=== PATIENT | male | born 1965 | race Caucasian/White ===

== ENCOUNTER 2020-03-04 10:27 | Outpatient (REF) | payer OTHER, SELFPAY ==
--- NOTE | 2020-03-04 10:29 | MR_ITS ---
EXAMINATION: MR LUMBAR SPINE WITHOUT CONTRAST CLINICAL INFORMATION: Low back pain with radiation down right leg. Right extremity weakness. COMPARISON: None TECHNIQUE: MRI of the lumbar spine was obtained using routine sequences without contrast. FINDINGS: The lumbar vertebral bodies maintain normal heights and alignment. There is mild desiccation at L4-L5 and L5-S1 without significant height loss. No bone marrow edema is seen. The distal spinal cord appears normal. The conus medullaris terminates normally at the T12 level. The visualized paraspinal muscles and intra-abdominal and pelvic contents are within normal limits. SPINAL LEVELS: L1-L2: No posterior disc abnormality. No spinal canal or neural foraminal stenosis. L2-L3: No posterior disc abnormality. No spinal canal or neural foraminal stenosis. L3-L4: Mild disc bulging with mild encroachment on the bilateral neural foramina. No spinal canal stenosis. L4-L5: Diffuse disc bulging with mild facet arthropathy. Bilateral foraminal protrusions are seen slightly greater on the right causing mass effect on the exiting right more than left L4 nerve roots. L5-S1: Disc bulging with central protrusion causing narrowing of the subarticular zones. Mild to moderate facet arthropathy. Minimal narrowing of the right neural foramen without foraminal nerve root compression. MR/MR lumbar spine wo con IMPRESSION: At L3-L4 there is mild encroachment on the bilateral neural foramina. At L4-L5 there are bilateral foraminal protrusions slightly greater on the right with mass effect on the exiting right more than left L4 nerve roots. At L5-S1 there is central protrusion with narrowing of the subarticular zones but without definite traversing nerve root compression. Minimal narrowing of the right neural foramen.
== END 2020-03-04 10:28 | disposition home or self-care (01) ==
LOC: HO.MRI 10:27
PROVIDERS: PCP Internal Medicine; Visit Provider Internal Medicine
DX: M54.41 Lumbago with sciatica, right side (principal)
CPT/HCPCS: 72148

== ENCOUNTER 2020-03-20 15:25 | Outpatient (REF) | payer OTHER, SELFPAY | END 2020-03-20 15:26 | disposition home or self-care (01) | LOC: HO.LAB 15:25 | PROVIDERS: PCP Family Medicine; Visit Provider Internal Medicine | DX: Z20.828 Contact with and (suspected) exposure to other viral communicable diseases (principal) | CPT/HCPCS: C9803; U0003 ==

== ENCOUNTER → 2020-12-24 09:55 | Outpatient (BNVA) | payer OTHER, SELFPAY | PROVIDERS: PCP Family Medicine; Referring Provider Family Medicine; Visit Provider Surgery | DX: Z86.010 Personal history of colon polyps (principal) | CPT/HCPCS: Q3014 ==

== ENCOUNTER 2021-01-15 08:09 | Day surgery (SDC) | payer OTHER, SELFPAY ==
[2021-01-08 12:41] VITALS: BMI 27.1
[2021-01-15 08:27] VITALS: BP 137/84; PULSE 90; RESP 18; TEMP 36.6; O2SAT 96
[2021-01-15 08:36] LABS: Glucose, Whole Blood 149 mg/dL (60-115)
--- NOTE | 2021-01-15 09:02 | P.CONAN_ITS ---
[facility] Active Problems Active Problems: All Active Problems (Updated 01/08/21 @ 12:40 by Ladan banerjee RN) History of adenomatous polyp of colon (Acute) Past Medical History Medical History BPH (benign prostatic hyperplasia) Depression Diabetes Elevated cholesterol History of adenomatous polyp of colon Vertigo Family History Family history of problems with anesthesia: No Surgical History Surgical History H/O colonoscopy Hx of hemorrhoidectomy History of Problems with Anesthesia: No Social History Social History Patient Tobacco Use Status: Current everyday Tobacco user Tobacco use type: Cigarette Cigarette Packs Per Day: 0.5 Cigarettes Per Day: 10.0 Advance Directives Information Provided: No Meds Allergies Allergy/AdvReac Type Severity Reaction Status Date / Time ibuprofen Allergy Intermediate large Verified 01/15/21 08:19 doses affect renal function Home Medications Medication Instructions Recorded Confirmed Last Taken Type atorvastatin 10 mg tablet 10 mg PO DAILY 12/24/20 01/08/21 Unknown History metformin 500 mg tablet 500 mg PO BID 12/24/20 01/08/21 Unknown History tamsulosin 0.4 mg capsule 0.4 mg PO DAILY 12/24/20 01/08/21 Unknown History trazodone 150 mg tablet 150 mg PO BEDTIME PRN 12/24/20 01/08/21 Unknown History albuterol sulfate 90 mcg/actuation 2 puff INHALATION Q4-6H PRN 01/08/21 01/08/21 Unknown History aerosol inhaler (ProAir HFA) aspirin 81 mg tablet,delayed 81 mg PO DAILY 01/08/21 01/08/21 Unknown History release buspirone 10 mg tablet 1 tab PO BID 01/08/21 01/08/21 Unknown History cyclobenzaprine 5 mg tablet 1 tab PO TID 01/08/21 01/08/21 Unknown History meclizine 25 mg tablet 1 tab PO TID PRN 01/08/21 01/08/21 Unknown History omeprazole 20 mg capsule,delayed 20 mg PO DAILY 01/08/21 01/08/21 Unknown History release Exam Exam Date and Time: January 15, [id number] Height,Weight and Vital Signs: Height 5 ft 6 in Weight 76.204 kg Last Vital Signs Temp 97.8 F 01/15/21 08:27 Pulse 90 01/15/21 08:27 Resp 18 01/15/21 08:27 BP 137/84 01/15/21 08:27 Pulse Ox 96 01/15/21 08:27 Pertinent Lab Results Pertinent Lab Results: Laboratory Tests 01/15/21 08:32 POC Glucose 149 H Airway Mallampati Class: II TM Dist: >3cm Neck ROM: Full Assessment and Plan Assessment Anesthesia Assessment: Anesthesia Plan Discussed and Chart Reviewed Final Anesthetic Review Family History of Problems with Anesthesia: No History of Problems with Anesthesia: No NPO: Yes ASA Class: II Final Preanesthetic Review: No Changes in Pt Med Stat, Meds/Allgs Chart Reviewed, Consent Obtained/Reviewed and Anes Risks/Benef Reviewed Patient Risk: Low Procedure Risk: Low Assessment/Block/Sedation in SS: Assess/Block/Sedation-SS Anesthetic Plan Anesthetic Plan: MAC: Disposition: Standard PACU
--- NOTE | 2021-01-15 09:22 | MHC.SHP ---
Pre-Procedural Eval Section A Date of Service: 01/15/21 Section B Chief Complaint: History of adenomatous polyp of colon Allergies: Allergies Allergy/AdvReac Type Severity Reaction Status Date / Time ibuprofen Allergy Intermediate large Verified 01/15/21 08:19 doses affect renal function Plan I have reviewed the history and physical and performed a pertinent physical examination on my patient. No changes have occurred unless specified.
--- NOTE | 2021-01-15 09:53 | W.PM.OPN ---
Operative Note Operative Note Date of Service: 01/15/21 Narrative: Preop diagnosis: History of adenomatous polyp of the colon Postop diagnosis: Flat polyp, near the hepatic flexure, about 2.5 cm Large hemorrhoids Procedure: Colonoscopy with polypectomy of a flat polyp using cold snare; tattooing of the area of the polyp with Corinne ink Surgeon: Ralf Hoskins MD The patient is a 55 year male would a flat polyp removed last year external to be a tubular adenoma. In view of this, I had instructed him to have another follow-up within 1-2 years. He understood the technique of colonoscopy. He was aware of the risks, benefits, and alternatives. He was brought to the operating room placed in left lateral decubitus position under monitored anesthesia care. A full digital rectal exam was done. He did have internal and external hemorrhoids which seemed to be prominent. I inserted the Olympus colonoscope was gently through the inner orifice and advanced with insufflation all the cecum. The cecum was intubated. The cecum was identified by visualization of the ileocecal valve as well as the appendiceal orifice. The cecal mucosa was unremarkable. The scope was gradually withdrawn with careful examination of the entire colonic mucosa being done with scope withdrawal. The patient did have some segments of the colon with residual stools so we had to irrigate this not irrigant fluid. At the area of the hepatic flexure was note of a small, flat polyp, about 2-2.5 cm in size. I removed this in piecemeal fashion using cold forceps. I tattooed the area of the polyp for marking as the polyp was flat so was difficult to tell whether I was able to remove all polyp tissue. I then proceeded to gradually withdrawing the scope with careful examination of the entire colonic mucosa being done with scope withdrawal. There were no other lesions seen. I could see the area that was previously tattooed which seemed to be in the transverse colon distal to the hepatic flexure. There were no lesions seen on this area despite multiple passes. The last of the distal colon and the rectum were unremarkable. There were no lesions in the anal canal except for internal and external hemorrhoidal columns that seemed to bleed easily. The scope was then withdrawn completely with desufflation The patient tolerated procedure well. The complications noted. In view of the flat nature of the polyp, I would recommend repeating the colonoscopy within 6 months and this will depend as well on the path report.
[2021-01-15 09:57] VITALS: BP 100/70; PULSE 81; RESP 16; TEMP 36.4; O2SAT 95
--- NOTE | 2021-01-15 09:59 | PM.OP ---
Brief Operative Note Date of Service: 01/15/21 Pre-op diagnosis: History of adenomatous polyp Post-op diagnosis: other (Flat polyp near the hepatic flexure, hemorrhoids) Procedure: Colonoscopy and polypectomy cold forceps with tattoo marking Surgeon: Ralf Hoskins MD Anesthesia: MAC Was an Machine Design Checker used for this Procedure?: No Estimated blood loss (mL): 2 Pathology: other (Flat polyp near the hepatic flexure) Condition: stable Disposition: PACU
[2021-01-15 10:12] VITALS: BP 107/74; PULSE 80; RESP 16; O2SAT 97
[2021-01-15 10:27] VITALS: BP 113/79; PULSE 74; RESP 16; O2SAT 98
== END 2021-01-15 11:21 | disposition home or self-care (01) ==
PROVIDERS: PCP Internal Medicine; Visit Provider Surgery
PROC: 0DJD8ZZ Inspection of Lower Intestinal Tract, Via Natural or Artificial Opening Endoscopic (ICD-10-PCS; CPT 45378; principal; 2021-01-15 09:20)
DX: Z12.11 Encounter for screening for malignant neoplasm of colon (principal); D12.3 Benign neoplasm of transverse colon; K57.30 Diverticulosis of large intestine without perforation or abscess without bleeding; K64.8 Other hemorrhoids; K64.4 Residual hemorrhoidal skin tags; Z86.010 Personal history of colon polyps; E11.9 Type 2 diabetes mellitus without complications; Z79.84 Long term (current) use of oral hypoglycemic drugs
CPT/HCPCS: 45380; 45381; 82947; 88305; J3010

== ENCOUNTER → 2021-01-18 12:55 | Outpatient (BNVA) | payer OTHER, SELFPAY | PROVIDERS: PCP Internal Medicine; Referring Provider Internal Medicine; Visit Provider Internal Medicine Gastroenterology | DX: R10.13 Epigastric pain (principal) | CPT/HCPCS: 99202 ==

== ENCOUNTER → 2021-01-27 11:29 | Outpatient (BNVA) | payer OTHER, SELFPAY | PROVIDERS: PCP Internal Medicine; Referring Provider Internal Medicine; Visit Provider Surgery | DX: D12.6 Benign neoplasm of colon, unspecified (principal) | CPT/HCPCS: 99212 ==

== ENCOUNTER 2021-02-18 07:59 | Outpatient (REF) | payer OTHER, SELFPAY ==
--- NOTE | ~2021-02-18 | US_ITS ---
EXAMINATION: US ABDOMEN LIMITED WITH LIVER ELASTOGRAPHY CLINICAL INFORMATION: Epigastric pain COMPARISON: 04/30/2019 TECHNIQUE: Real-time imaging of the right upper quadrant abdominal viscera. Noninvasive ultrasound liver fibrosis assessment is performed using Maximo ElastPQ point quantification shear wave elastography (pSWE) with a C5-2 MHz transducer. Multiple elastography samples are obtained. FINDINGS: PANCREAS: The visualized pancreatic head and neck are normal in appearance. The remainder of the pancreas is obscured from visualization by the overlying bowel gas. LIVER: The liver demonstrates normal size and contour with increased echogenicity. No focal lesion or intrahepatic biliary duct dilatation. The right lobe measures 17.9 cm in length. The left lobe measures 12.4 cm in length. Portal flow is towards the liver (hepatopetal). Shear wave liver elastography median stiffness is 1.56 m/s (reference: normal median stiffness is 1.3 m/s or less). IQR/median stiffness to assess sampling precision is 0.15 (reference: good quality data set is IQR/median stiffness of 0.15 or less). GALLBLADDER: Normal. The gallbladder is physiologically distended without evidence of stones, sludge, polyps, wall thickening or pericholecystic fluid. COMMON BILE DUCT: Normal in caliber measuring 0.3 cm in diameter. RIGHT KIDNEY: Normal. No hydronephrosis. No renal calculi or focal parenchymal lesions. The kidney measures 11 cm in maximum dimension. FREE FLUID: None. US/US abdomen ritchie w elastography IMPRESSION: 1. Hepatic steatosis. 2. Liver elastography: In the absence of other known clinical signs, measurements rule out compensated advanced chronic liver disease. If there are known clinical signs, further testing may be needed for confirmation. REFERENCE: Society of Radiologists in Ultrasound Liver Stiffness Thresholds (2020): LIVER STIFFNESS THRESHOLDS: *Liver Stiffness equal or less than 1.3 m/s: High probability of being normal. *Liver Stiffness less than 1.7 m/s: In the absence of other known clinical signs, rules out compensated advanced chronic liver disease. *Liver Stiffness 1.7-2.1 m/s: Suggestive of compensated advanced chronic liver disease but need further test for confirmation. *Liver Stiffness over 2.1 m/s: Rules in compensated advanced chronic liver disease. *Liver Stiffness over 2.4 m/s: Suggestive of clinically significant portal hypertension. QUALITY OF DATA SET: *IQR/Median value equal or less than 0.15 implies a quality data set. *IQR/Median value over 0.15 implies a poor quality data set. SIGNIFICANT CHANGE FROM PRIOR EXAM: Significant change if liver stiffness measurement is 10% or greater from prior exam. OTHER CONSIDERATIONS: The stage of liver fibrosis may be overestimated in the setting of acute hepatitis, liver inflammation, elevated liver function tests, hepatic vascular congestion, obstructive cholestasis, non-fasting state, and infiltrative diseases such as amyloidosis and lymphoma. In some patients with NAFLD, the liver stiffness thresholds for compensated advanced chronic liver disease may be lower. In causes other than viral hepatitis and NAFLD, liver stiffness thresholds are not well established.
== END 2021-02-18 08:00 | disposition home or self-care (01) ==
LOC: HO.US 07:59
PROVIDERS: Visit Provider Internal Medicine Gastroenterology
DX: R10.13 Epigastric pain (principal)
CPT/HCPCS: 76705; 76981

== ENCOUNTER 2021-02-22 12:01 | Day surgery (SDC) | payer OTHER, SELFPAY ==
[2021-02-22 11:54] VITALS: BMI 28.2
[2021-02-22 11:56] VITALS: BP 134/87; PULSE 62; RESP 16; TEMP 36.8; O2SAT 98
--- NOTE | 2021-02-22 12:10 | MHC.SHP ---
Pre-Procedural Eval Section A Date of Service: 02/22/21 Section B Chief Complaint: Epigastric Pain Relevant Family History (Specify if Yes): No Relevant Social History: Tobacco Use Present Medications: see Short Stay Collaborative assessment Medical History: Significant History (BPH (benign prostatic hyperplasia) Depression Diabetes Elevated cholesterol History of adenomatous polyp of colon Vertigo) History of Previous Operations: Relevant previous surgery/procedure and date(s) (H/O colonoscopy Hx of hemorrhoidectomy) Allergies: Allergies Allergy/AdvReac Type Severity Reaction Status Date / Time ibuprofen Allergy Intermediate large Verified 01/27/21 11:47 doses affect renal function Review of Systems Sugical H&P ROS: Negative: Constitution, Cardiovascular, Respiratory, Neurological, Psychiatric, Hem-Onc, Allergic/Immunologic, Gastrointestinal, Genitourinary, Musculoskeletal, Integumentary, Endocrine and Eyes/Ears/Nose/Throat Exam Surgical H&P Exam: Normal: HEENT, Normal: Heart, Normal: Lungs, Normal: Extremities, Normal: Abdomen, Normal: Skin and Normal: Neurological Plan Diagnosis/Plan: Unchanged I have reviewed the history and physical and performed a pertinent physical examination on my patient. No changes have occurred unless specified.
--- NOTE | 2021-02-22 12:12 | P.BOP_ITS ---
Brief Operative Note Date of Service: 02/22/21 Pre-op diagnosis: epigastric pain Post-op diagnosis: same Procedure: see op note Surgeon: Lawrence Avila MD Anesthesia: MAC Was an Wildlife Ecology Professor used for this Procedure?: No Estimated blood loss (mL): 0 Condition: stable Disposition: PACU
--- NOTE | 2021-02-22 12:12 | W.PM.OPN ---
Operative Note Operative Note Date of Service: 02/22/21 Narrative: Procedure Description: EGD FLEXIBLE TRANSORAL UPPER GASTROINTESTINAL ENDOSCOPY UPPER ENDOSCOPY Consent: Indications for the procedure and potential complications of bleeding, perforation, reaction to medications and missed diagnosis were discussed with the patient and informed consent was obtained. Instrument: Olympus GIF H 190 J mid size upper endoscope Monitoring: Vital signs and clinical assessment, continuous EKG monitoring, Pulse oximetry, Carbon Dioxide monitoring and blood pressure monitoring were done throughout the procedure. Procedure: The patient was placed in the left lateral decubitis position and pre-procedure medications were administered and a bite block was placed. The endoscope was inserted into the mouth and advanced under direct vision to the third part of duodenum. A careful inspection was made as the upper endoscope was withdrawn including a retroflexed examination of the proximal stomach; Findings and interventions are described below. Findings: Larynx:normal Esophagus: GE junction at 40 cm, diaphragm hiatus at 40 cm, islands of salmon pink mucosa noted, irregular Z line, bx taken to r/o barretts esophagus Stomach: Patchy gastric erythema and atrophy. Biopsies were obtained. Grade 2 flap valve on retroflexed examination of the cardia. Duodenum: Normal bulb and descending duodenum, Intervention: Biopsies as noted above Impression/Findings: gastritis possible barretts esophagus PLAN: await bx results cont with PPI as helping if H pylori pos then treat
--- NOTE | 2021-02-22 12:44 | HO.ANESPROP2 ---
HPI - Anesthesia Eval Consult details Narrative: Epigastric Pain PMFSH Active Problems Active Problems: All Active Problems (Updated 01/27/21 @ 11:50 by Ralf Hoskins MD) Tubular adenoma of colon (Acute) Epigastric abdominal pain (Acute) History of adenomatous polyp of colon (Acute) Past Medical History Medical History (Updated 01/27/21 @ 11:50 by Ralf Hoskins MD) BPH (benign prostatic hyperplasia) Depression Diabetes Elevated cholesterol History of adenomatous polyp of colon Tubular adenoma of colon Vertigo Family History Family history of problems with anesthesia: No Surgical History Surgical History H/O colonoscopy Hx of colonoscopy (~2020) Hx of hemorrhoidectomy History of Problems with Anesthesia: No Social History Social History Patient Tobacco Use Status: Current everyday Tobacco user Tobacco use type: Cigarette Cigarette Packs Per Day: 0.5 Cigarettes Per Day: 10.0 Smoked in Last 30 Days: Yes Use of substances other than those prescribed or required for medical reasons: No Are you DNR?: No Advance Directives: No Advance Directives Information Provided: Yes Recently lost weight without trying: No Nutrition Risks: No Nutritional Risk Meds Allergies Allergy/AdvReac Type Severity Reaction Status Date / Time ibuprofen Allergy Intermediate large Verified 01/27/21 11:47 doses affect renal function Home Medications Medication Instructions Recorded Confirmed Last Taken Type atorvastatin 10 mg tablet 10 mg PO DAILY 12/24/20 01/27/21 Unknown History metformin 500 mg tablet 500 mg PO BID 12/24/20 01/27/21 Unknown History tamsulosin 0.4 mg capsule 0.4 mg PO DAILY 12/24/20 01/27/21 Unknown History trazodone 150 mg tablet 150 mg PO BEDTIME PRN 12/24/20 01/27/21 Unknown History albuterol sulfate 90 mcg/actuation 2 puff INHALATION Q4-6H PRN 01/08/21 01/27/21 Unknown History aerosol inhaler (ProAir HFA) aspirin 81 mg tablet,delayed 81 mg PO DAILY 01/08/21 01/27/21 Unknown History release buspirone 10 mg tablet 1 tab PO BID 01/08/21 01/27/21 Unknown History cyclobenzaprine 5 mg tablet 1 tab PO TID 01/08/21 01/27/21 Unknown History meclizine 25 mg tablet 1 tab PO TID PRN 01/08/21 01/27/21 Unknown History omeprazole 20 mg capsule,delayed 20 mg PO DAILY 01/08/21 01/27/21 02/22/21 History release Exam Exam Date and Time: February 22, 2021 1244 Height,Weight and Vital Signs: Height 5 ft 6 in Weight 79.379 kg Last Vital Signs Temp 98.3 F 02/22/21 11:56 Pulse 62 02/22/21 11:56 Resp 16 02/22/21 11:56 BP 134/87 02/22/21 11:56 Pulse Ox 98 02/22/21 11:56 Airway Mallampati Class: III TM Dist: >3cm Neck ROM: Full Loose/Missing/Broken Teeth: Yes Heart: [id number] Lungs: cta b/l Assessment and Plan Assessment Anesthesia Assessment: Anesthesia Plan Discussed and Chart Reviewed Final Anesthetic Review Family History of Problems with Anesthesia: No History of Problems with Anesthesia: No ASA Class: II Final Preanesthetic Review: No Changes in Pt Med Stat, Meds/Allgs Chart Reviewed, Consent Obtained/Reviewed and Anes Risks/Benef Reviewed Patient Risk: Intermediate Procedure Risk: Low Assessment/Block/Sedation in SS: Assess/Block/Sedation-SS Anesthetic Plan Anesthetic Plan: MAC: and Agree w/ Assess. and Plan Disposition: Standard PACU
[2021-02-22 12:54] VITALS: BP 105/73; PULSE 73; RESP 16; TEMP 36.6; O2SAT 97
[2021-02-22 13:10] VITALS: BP 127/68; PULSE 70; RESP 16; O2SAT 97
[2021-02-22 13:25] VITALS: BP 118/80; PULSE 76; RESP 16; TEMP 36.6; O2SAT 98
== END 2021-02-22 14:16 | disposition home or self-care (01) ==
PROVIDERS: PCP Internal Medicine; Visit Provider Internal Medicine Gastroenterology
PROC: 0DJ08ZZ Inspection of Upper Intestinal Tract, Via Natural or Artificial Opening Endoscopic (ICD-10-PCS; CPT 43235; principal; 2021-02-22 14:40)
DX: K29.50 Unspecified chronic gastritis without bleeding (principal); K20.80 Other esophagitis without bleeding; K22.70 Barrett's esophagus without dysplasia; K44.9 Diaphragmatic hernia without obstruction or gangrene; K27.9 Peptic ulcer, site unspecified, unspecified as acute or chronic, without hemorrhage or perforation; J45.909 Unspecified asthma, uncomplicated; I10 Essential (primary) hypertension; E11.9 Type 2 diabetes mellitus without complications; F17.210 Nicotine dependence, cigarettes, uncomplicated; Z88.8 Allergy status to other drugs, medicaments and biological substances
CPT/HCPCS: 43239; 88305; 88342

== ENCOUNTER → 2021-06-28 08:48 | Outpatient (BNVA) | payer OTHER, SELFPAY | PROVIDERS: PCP Internal Medicine; Referring Provider Internal Medicine; Visit Provider Surgery | DX: Z86.010 Personal history of colon polyps (principal) | CPT/HCPCS: 99212 ==

== ENCOUNTER 2021-08-31 06:21 | Day surgery (SDC) | payer OTHER, SELFPAY ==
[2021-08-24 14:08] VITALS: BMI 28.2
--- NOTE | 2021-08-30 09:02 | HO.ANESPROP2 ---
Documented by User: Kinga Cormier NP 08/30/21 09:30 HPI - Anesthesia Eval Consult details Narrative: 56yo M for Colonoscopy with Polypectomy s/p EGD 02/2021 with MAC [facility] Active Problems Active Problems: All Active Problems (Updated 06/28/21 @ 09:06 by Ralf Hoskins MD) Epigastric abdominal pain (Acute) Tubular adenoma of colon (Acute) History of adenomatous polyp of colon (Acute) Past Medical History Medical History BPH (benign prostatic hyperplasia) Depression Diabetes Elevated cholesterol History of adenomatous polyp of colon Tubular adenoma of colon Vertigo Family History Family history of problems with anesthesia: No Surgical History Surgical History H/O colonoscopy History of esophagogastroduodenoscopy (EGD) Hx of hemorrhoidectomy History of Problems with Anesthesia: No Social History Social History Patient Tobacco Use Status: Current everyday Tobacco user Tobacco use type: Cigarette Cigarette Packs Per Day: 0.5 Cigarettes Per Day: 10.0 Use of substances other than those prescribed or required for medical reasons: No Are you DNR?: No Advance Directives: No Advance Directives Information Provided: Yes Recently lost weight without trying: No Meds Allergies Allergy/AdvReac Type Severity Reaction Status Date / Time ibuprofen Allergy Intermediate large Verified 06/28/21 09:01 doses affect renal function Home Medications Medication Instructions Recorded Confirmed Last Taken Type atorvastatin 10 mg tablet 10 mg PO DAILY 12/24/20 06/28/21 Unknown History metformin 500 mg tablet 500 mg PO BID 12/24/20 06/28/21 Unknown History tamsulosin 0.4 mg capsule 0.4 mg PO DAILY 12/24/20 06/28/21 Unknown History trazodone 150 mg tablet 150 mg PO BEDTIME PRN 12/24/20 06/28/21 Unknown History albuterol sulfate 90 mcg/actuation 2 puff INHALATION Q4-6H PRN 01/08/21 06/28/21 Unknown History aerosol inhaler (ProAir HFA) aspirin 81 mg tablet,delayed 81 mg PO DAILY 01/08/21 06/28/21 Unknown History release buspirone 10 mg tablet 1 tab PO BID 01/08/21 06/28/21 Unknown History cyclobenzaprine 5 mg tablet 1 tab PO TID 01/08/21 06/28/21 Unknown History meclizine 25 mg tablet 1 tab PO TID PRN 01/08/21 06/28/21 Unknown History omeprazole 20 mg capsule,delayed 20 mg PO DAILY 01/08/21 06/28/21 02/22/21 History release Exam Exam Date and Time: August 30, [id number] Height,Weight and Vital Signs: Height 5 ft 6 in Weight 79.379 kg Assessment and Plan Assessment Anesthesia Assessment: Chart Reviewed Final Anesthetic Review Family History of Problems with Anesthesia: No History of Problems with Anesthesia: No Documented by User: Radha Lucero MD 08/31/21 07:13 [facility] Past Medical History Medical History BPH (benign prostatic hyperplasia) Depression Diabetes Elevated cholesterol History of adenomatous polyp of colon Tubular adenoma of colon Vertigo Surgical History Surgical History H/O colonoscopy History of esophagogastroduodenoscopy (EGD) Hx of hemorrhoidectomy Social History Social History Patient Tobacco Use Status: Current everyday Tobacco user Tobacco use type: Cigarette Cigarette Packs Per Day: 0.5 Cigarettes Per Day: 10.0 Use of substances other than those prescribed or required for medical reasons: No Are you DNR?: No Advance Directives: No Advance Directives Information Provided: Yes Recently lost weight without trying: No Meds Allergies Allergy/AdvReac Type Severity Reaction Status Date / Time ibuprofen Allergy Intermediate large Verified 06/28/21 09:01 doses affect renal function Home Medications Medication Instructions Recorded Confirmed Last Taken Type atorvastatin 10 mg tablet 10 mg PO DAILY 12/24/20 06/28/21 Unknown History metformin 500 mg tablet 500 mg PO BID 12/24/20 06/28/21 Unknown History tamsulosin 0.4 mg capsule 0.4 mg PO DAILY 12/24/20 06/28/21 Unknown History trazodone 150 mg tablet 150 mg PO BEDTIME PRN 12/24/20 06/28/21 Unknown History albuterol sulfate 90 mcg/actuation 2 puff INHALATION Q4-6H PRN 01/08/21 06/28/21 Unknown History aerosol inhaler (ProAir HFA) aspirin 81 mg tablet,delayed 81 mg PO DAILY 01/08/21 06/28/21 Unknown History release buspirone 10 mg tablet 1 tab PO BID 01/08/21 06/28/21 Unknown History cyclobenzaprine 5 mg tablet 1 tab PO TID 01/08/21 06/28/21 Unknown History meclizine 25 mg tablet 1 tab PO TID PRN 01/08/21 06/28/21 Unknown History omeprazole 20 mg capsule,delayed 20 mg PO DAILY 01/08/21 06/28/21 02/22/21 History release Exam Airway Mallampati Class: III (Loose ttoth bottom left) TM Dist: >3cm Neck ROM: Full Heart: rrr Lungs: cta Assessment and Plan Assessment Anesthesia Assessment: Anesthesia Plan Discussed and Chart Reviewed Final Anesthetic Review NPO: Yes ASA Class: II Final Preanesthetic Review: No Changes in Pt Med Stat, Meds/Allgs Chart Reviewed and Consent Obtained/Reviewed Patient Risk: Intermediate Procedure Risk: Intermediate Anesthetic Plan Anesthetic Plan: MAC: Disposition: Standard PACU
[2021-08-31 06:34] VITALS: BMI 28.5
[2021-08-31 06:50] VITALS: BP 109/79; PULSE 85; RESP 18; TEMP 36.8; O2SAT 95
[2021-08-31 06:57] LABS: Glucose, Whole Blood 161 mg/dL (60-115)
[2021-08-31] MEDS: Lactated Ringers 1,000 ML 100 ML IVCONT (07:05)
--- NOTE | 2021-08-31 08:29 | MHC.SHP ---
Pre-Procedural Eval Section A Date of Service: 08/31/21 Section B Chief Complaint: Personal history of colonic polyps Details of Present Illness: Has history of flat polyp in the right colon Relevant Family History (Specify if Yes): No Relevant Social History: None Present Medications: see Short Stay Collaborative assessment Medical History: Significant History ( sleep apnea) History of Previous Operations: Relevant previous surgery/procedure and date(s) ( colonoscopy polypectomy) Allergies: Allergies Allergy/AdvReac Type Severity Reaction Status Date / Time ibuprofen Allergy Intermediate large Verified 06/28/21 09:01 doses affect renal function Review of Systems Sugical H&P ROS: Negative: Constitution, Cardiovascular, Respiratory, Neurological, Psychiatric, Hem-Onc, Allergic/Immunologic, Gastrointestinal, Genitourinary, Musculoskeletal, Integumentary, Endocrine and Eyes/Ears/Nose/Throat Exam Surgical H&P Exam: Normal: HEENT, Normal: Heart, Normal: Lungs, Normal: Extremities, Normal: Abdomen, Normal: Skin and Normal: Neurological Plan Diagnosis/Plan: Unchanged I have reviewed the history and physical and performed a pertinent physical examination on my patient. No changes have occurred unless specified.
--- NOTE | 2021-08-31 08:30 | W.PM.OPN ---
Operative Note Operative Note Date of Service: 08/31/21 Narrative: Ppreop diagnosis: History of polyp in the right colon Postop diagnosis: 1.As above, with diverticulosis 2.small fat polyp in the right colon, about 1 cm 3.poor bowel prep Procedure: colonoscopy with polypectomy using cold forceps surgeon: Ralf Hoskins MD The patient is a 56-year-old male who had undergone a colonoscopy in 2020. He was noted to have a large flat polyp in the right colon near the hepatic flexure. Polypectomy was done using cold forceps. The area was do does well. I had recommended a follow-up in 6 months to make sure that we had removed all of the polyp. He understood the technique of the procedure as well as the risks, benefits, and alternatives He was brought to the operating room and placed in left lateral decubitus position under monitored anesthesia care. A full digital rectal exam was done. There were no palpable anal canal lesions or induration. The tip of the Olympus colonoscope was gently introduced through the orifice advanced with insufflation all the way to cecum. The cecum was intubated. The cecum was identified by visualization of the ileocecal valve as well as the appendiceal orifice. The cecal mucosa was unremarkable. The scope was gradually withdrawn with careful examination of the entire colonic mucosa being done with scope withdrawal. The patient was noted to have a suboptimal bowel prep and there was note of large amount of stool in multiple segments. Post able to visualize the tattooed area in the right colon. Near this was note of a small flat polyp about 1 cm in size. The was removed using multiple biopsy cold forceps. I proceeded to continue to withdraw the scope with careful examination of the entire colonic mucosa being done with scope withdrawal. He had diffuse diverticulosis. He did have suboptimal bowel prep as described above. The rectum was reached. There were no lesions seen. The anal canal was unremarkable. The scope was then withdrawn completely with desufflation. The patient tolerated Theprocedure well. There were no complications noted. in view of his sub optimal bowel prep as well as the presence of theflat polyp, I would recommend repeating the colonoscopy in 6 months.
[2021-08-31 08:35] VITALS: BP 130/65; PULSE 73; RESP 16; TEMP 36.2; O2SAT 95
[2021-08-31 08:50] VITALS: BP 109/74; PULSE 75; RESP 16; TEMP 36.2; O2SAT 96
== END 2021-08-31 09:29 | disposition home or self-care (01) ==
PROVIDERS: PCP Internal Medicine; Visit Provider Surgery
PROC: 0DBE8ZZ Excision of Large Intestine, Via Natural or Artificial Opening Endoscopic (ICD-10-PCS; CPT 45380; principal; 2021-08-31 07:30)
DX: Z12.11 Encounter for screening for malignant neoplasm of colon (principal); Z86.010 Personal history of colon polyps; D12.2 Benign neoplasm of ascending colon; K57.30 Diverticulosis of large intestine without perforation or abscess without bleeding; N40.0 Benign prostatic hyperplasia without lower urinary tract symptoms; E11.9 Type 2 diabetes mellitus without complications; E78.00 Pure hypercholesterolemia, unspecified; R42 Dizziness and giddiness; Z79.82 Long term (current) use of aspirin; Z79.84 Long term (current) use of oral hypoglycemic drugs; Z79.899 Other long term (current) drug therapy; Z88.8 Allergy status to other drugs, medicaments and biological substances; F17.210 Nicotine dependence, cigarettes, uncomplicated
CPT/HCPCS: 45380; 82947; 88305

== ENCOUNTER → 2022-03-02 11:15 | Outpatient (BNVA) | payer OTHER, SELFPAY | PROVIDERS: PCP Internal Medicine; Visit Provider Surgery | DX: Z86.010 Personal history of colon polyps (principal) | CPT/HCPCS: 99212 ==

== ENCOUNTER 2022-04-08 07:02 | Day surgery (SDC) | payer OTHER, SELFPAY ==
--- NOTE | 2022-04-07 09:38 | P.CONAN_ITS ---
Documented by User: Kinga Cormier NP 04/07/22 09:40 HPI - Anesthesia Eval Consult details Narrative: 56yo M for Colonoscopy s/p colo 08/2021 with MAC PMF Active Problems Active Problems: All Active Problems (Updated 03/15/22 @ 15:38 by Barney Alfaro, JOJO) Epigastric abdominal pain (Acute) Hemorrhoid (Acute) Tubular adenoma of colon (Acute) History of adenomatous polyp of colon (Acute) Past Medical History Medical History BPH (benign prostatic hyperplasia) Depression Diabetes Elevated cholesterol History of adenomatous polyp of colon Tubular adenoma of colon Vertigo Family History Family history of problems with anesthesia: No Surgical History Surgical History H/O colonoscopy History of esophagogastroduodenoscopy (EGD) Hx of hemorrhoidectomy History of Problems with Anesthesia: No Social History Social History Patient Tobacco Use Status: Current everyday Tobacco user Tobacco use type: Cigarette Cigarette Packs Per Day: 0.5 Cigarettes Per Day: 10.0 Advance Directives: No Advance Directives Information Provided: Yes Meds Allergies Allergy/AdvReac Type Severity Reaction Status Date / Time ibuprofen Allergy Intermediate large Verified 04/04/22 11:53 doses affect renal function Home Medications Medication Instructions Recorded Confirmed Last Taken Type atorvastatin 10 mg tablet 10 mg PO DAILY 12/24/20 04/04/22 Unknown History metformin 500 mg tablet 500 mg PO BID 12/24/20 04/04/22 Unknown History tamsulosin 0.4 mg capsule 0.4 mg PO DAILY 12/24/20 04/04/22 Unknown History trazodone 150 mg tablet 150 mg PO BEDTIME PRN Insomnia 12/24/20 04/04/22 Unknown History albuterol sulfate 90 mcg/actuation 2 puff inhalation Q4-6H PRN 01/08/21 04/04/22 Unknown History aerosol inhaler (ProAir HFA) Shortness Of Breath aspirin 81 mg tablet,delayed 81 mg PO DAILY 01/08/21 04/04/22 Unknown History release buspirone 10 mg tablet 1 tab PO BID 01/08/21 04/04/22 Unknown History cyclobenzaprine 5 mg tablet 1 tab PO TID 01/08/21 04/04/22 Unknown History meclizine 25 mg tablet 1 tab PO TID PRN dizziness 01/08/21 04/04/22 Unknown History omeprazole 20 mg capsule,delayed 20 mg PO DAILY 01/08/21 04/04/22 02/22/21 History release Exam Exam Date and Time: April 07, [id number] Assessment and Plan Assessment Anesthesia Assessment: Chart Reviewed Final Anesthetic Review Family History of Problems with Anesthesia: No History of Problems with Anesthesia: No Documented by User: Fina Appiah MD 04/08/22 08:15 [facility] Past Medical History Medical History BPH (benign prostatic hyperplasia) Depression Diabetes Elevated cholesterol History of adenomatous polyp of colon Tubular adenoma of colon Vertigo Functional capacity: independent ambulation Surgical History Surgical History H/O colonoscopy History of esophagogastroduodenoscopy (EGD) Hx of hemorrhoidectomy Social History Social History Patient Tobacco Use Status: Current everyday Tobacco user Tobacco use type: Cigarette Cigarette Packs Per Day: 0.5 Cigarettes Per Day: 10.0 Advance Directives: No Advance Directives Information Provided: Yes Meds Allergies Allergy/AdvReac Type Severity Reaction Status Date / Time ibuprofen Allergy Intermediate large Verified 04/04/22 11:53 doses affect renal function Home Medications Medication Instructions Recorded Confirmed Last Taken Type atorvastatin 10 mg tablet 10 mg PO DAILY 12/24/20 04/04/22 Unknown History metformin 500 mg tablet 500 mg PO BID 12/24/20 04/04/22 Unknown History tamsulosin 0.4 mg capsule 0.4 mg PO DAILY 12/24/20 04/04/22 Unknown History trazodone 150 mg tablet 150 mg PO BEDTIME PRN Insomnia 12/24/20 04/04/22 Unknown History albuterol sulfate 90 mcg/actuation 2 puff inhalation Q4-6H PRN 01/08/21 04/04/22 Unknown History aerosol inhaler (ProAir HFA) Shortness Of Breath aspirin 81 mg tablet,delayed 81 mg PO DAILY 01/08/21 04/04/22 Unknown History release buspirone 10 mg tablet 1 tab PO BID 01/08/21 04/04/22 Unknown History cyclobenzaprine 5 mg tablet 1 tab PO TID 01/08/21 04/04/22 Unknown History meclizine 25 mg tablet 1 tab PO TID PRN dizziness 01/08/21 04/04/22 Unknown History omeprazole 20 mg capsule,delayed 20 mg PO DAILY 01/08/21 04/04/22 02/22/21 History release Exam Airway Mallampati Class: II TM Dist: >3cm Neck ROM: Full Heart: RRR Lungs: CTA Assessment and Plan Final Anesthetic Review NPO: Yes ASA Class: II Final Preanesthetic Review: No Changes in Pt Med Stat, Meds/Allgs Chart Reviewed, Consent Obtained/Reviewed and Anes Risks/Benef Reviewed Patient Risk: Low Procedure Risk: Low Anesthetic Plan Anesthetic Plan: MAC: Disposition: Standard PACU
[2022-04-08 08:25] VITALS: BMI 27.4
[2022-04-08] MEDS: Lactated Ringers 1,000 ML 100 ML IVCONT (08:50)
[2022-04-08 08:51] VITALS: BP 109/74; PULSE 70; RESP 18; TEMP 36.6; O2SAT 93
[2022-04-08 08:52] LABS: Glucose, Whole Blood 134 mg/dL (60-115)
--- NOTE | 2022-04-08 08:58 | MHC.SHP ---
Pre-Procedural Eval Section A Date of Service: 04/08/22 Section B Chief Complaint: Personal history of colonic polyps Details of Present Illness: has hx of flat polyp in hepatic flexure Relevant Family History (Specify if Yes): No Relevant Social History: None Present Medications: see Short Stay Collaborative assessment Medical History: Significant History Allergies: Allergies Allergy/AdvReac Type Severity Reaction Status Date / Time ibuprofen Allergy Intermediate large Verified 04/04/22 11:53 doses affect renal function Review of Systems Sugical H&P ROS: Negative: Constitution, Cardiovascular, Respiratory, Neurological, Psychiatric, Hem-Onc, Allergic/Immunologic, Gastrointestinal, Genitourinary, Musculoskeletal, Integumentary, Endocrine and Eyes/Ears/Nose/Throat Exam Surgical H&P Exam: Normal: HEENT, Normal: Heart, Normal: Lungs, Normal: Extremities, Normal: Abdomen, Normal: Skin and Normal: Neurological Plan Diagnosis/Plan: Unchanged I have reviewed the history and physical and performed a pertinent physical examination on my patient. No changes have occurred unless specified. Time Spent With Patient Time: Total time managing care of this patient today ____ minutes.
--- NOTE | 2022-04-08 09:27 | P.OP_ITS ---
Operative Note Operative Note Date of Service: 04/08/22 Narrative: Preop diagnosis: History of adenomatous polyp, hepatic flexure Postop diagnosis: The same, with diverticulosis; no residual polyp seen Procedure: Colonoscopy Surgeon: Ralf Hoskins MD The patient is a 56-year-old male, who was had a flat was polyp in hepatic flexure. I had been scheduling him for follow-up colonoscopies with short intervals because of the flat nature of the polyp to ensure complete removal. He understood the technique of the procedure. He was aware of the risks, benefits, and alternatives The patient was brought to the operating room and placed in left lateral decubitus position under monitored anesthesia care. A surgical time-out was done. A full digital rectal exam was done and this did not reveal any significant anal lesions. The tip of the Olympus colonoscope was gently int roduced through the anal orifice advanced with insufflation all the way to the cecum. The cecum was intubated. The cecum was identified by visualization of the ileocecal valve as well as the appendiceal orifice. The cecal mucosa was unremarkable. The scope was gradually withdrawn with careful examination of the entire colonic mucosa being done with scope withdrawal. The patient had adequate bowel prep so it was unlikely that any lesion may have been missed. The hepatic flexure was examined multiple times. The to markings were seen. Despite multiple passes, I did not visualize any residual polyp or abnormal mucosa. He did have diffuse diverticulosis mostly in the sigmoid. The rectum was reached and there were no lesions seen. The anal canal was unremarkable. The scope was then withdrawn completely with desufflation The patient tolerated procedure well. There were no immediate complications. I will probably recommend another colonoscopy with the next 2-3 years. I will explained this to him in the office.
[2022-04-08 09:31] VITALS: BP 90/59; PULSE 83; RESP 16; TEMP 36.3; O2SAT 93
[2022-04-08 09:46] VITALS: BP 101/65; PULSE 80; RESP 16; O2SAT 98
[2022-04-08 10:01] VITALS: BP 101/73; PULSE 74; RESP 16; TEMP 36.3; O2SAT 96
--- NOTE | 2022-04-08 13:56 | HO.POSTANES ---
Post Anesthesia Evaluation Post Anesthesia Evaluation Vital Signs: Vital Signs Temp Pulse Resp BP Pulse Ox O2 Del Method O2 Flow Rate 04/08/22 10:01 97.3 F 74 16 101/73 96 Room Air 04/08/22 09:46 80 16 101/65 98 Nasal Cannula with ETCO2 2 04/08/22 09:31 97.4 F 83 16 90/59 L 93 Room Air 04/08/22 08:51 97.8 F 70 18 109/74 93 Room Air Anesthesia: Monitored and General Mental Status: Awake Pain Control: Satisfactory Nausea/Vomiting: None Hydration: Adequate Anesthesia-Related Issues: No Anes. Related Issues
== END 2022-04-08 10:40 | disposition home or self-care (01) ==
PROVIDERS: PCP Internal Medicine; Visit Provider Surgery
PROC: 0DJD8ZZ Inspection of Lower Intestinal Tract, Via Natural or Artificial Opening Endoscopic (ICD-10-PCS; CPT 45378; principal; 2022-04-08 09:00)
DX: Z12.11 Encounter for screening for malignant neoplasm of colon (principal); Z86.010 Personal history of colon polyps; K57.30 Diverticulosis of large intestine without perforation or abscess without bleeding; N40.0 Benign prostatic hyperplasia without lower urinary tract symptoms; E78.00 Pure hypercholesterolemia, unspecified; E11.9 Type 2 diabetes mellitus without complications; Z79.84 Long term (current) use of oral hypoglycemic drugs; Z79.82 Long term (current) use of aspirin; Z79.899 Other long term (current) drug therapy; Z88.8 Allergy status to other drugs, medicaments and biological substances; F17.210 Nicotine dependence, cigarettes, uncomplicated
CPT/HCPCS: G0105; 82947

== ENCOUNTER → 2022-04-21 10:01 | Outpatient (BNVA) | payer OTHER, SELFPAY | PROVIDERS: PCP Internal Medicine; Referring Provider Internal Medicine; Visit Provider Physician Assistant Surgical | DX: Z86.010 Personal history of colon polyps (principal) | CPT/HCPCS: 99212 ==

== ENCOUNTER → 2022-05-09 15:22 | Outpatient (BNVA) | payer OTHER, SELFPAY | PROVIDERS: PCP Internal Medicine; Visit Provider Internal Medicine | DX: M54.16 Radiculopathy, lumbar region (principal); M47.816 Spondylosis without myelopathy or radiculopathy, lumbar region | CPT/HCPCS: 99202 ==

== ENCOUNTER 2023-07-31 12:59 | Outpatient (AMB) | payer OTHER, SELFPAY ==
--- NOTE | 2023-07-31 13:03 | A.OFFVIS_ITS ---
Intake Intake Visit Reasons: Urge Incontinence Intake Note: New Patient presents for initial visit for incontinence Urology Medication: Tamsulosin Blood Thinner: Aspirin PVR: 16ml's [employer] Salesperson Required: Yes [employer] Salesperson Name: LETTY GUAMAN Accompanied by: Self / Same As Patient Allergies ibuprofen Allergy (Intermediate, Verified 07/31/23 22:17) large doses affect renal function Medication List - Last Reconciled 07/31/23 by RICHIE Johnson- albuterol sulfate 90 mcg/actuation (ProAir HFA) 2 puffs inhalation Q4-6H PRN aspirin 81 mg PO DAILY atorvastatin 10 mg PO DAILY bisacodyl (Dulcolax (bisacodyl)) 10 mg (2 x 5 mg) PO ONCE 1 day buspirone 1 tab PO BID cyclobenzaprine 1 tab PO TID meclizine 1 tab PO TID PRN metformin 500 mg PO BID omega-3 acid ethyl esters 1 cap PO BID omeprazole 20 mg PO DAILY polyethylene glycol 3350 (Miralax) 238 grams PO ONCE sertraline 25 mg PO DAILY sodium,potassium,mag sulfates 17.5-3.13-1.6 gram (Suprep Bowel Prep Kit) DILUTE; drink full amount early evening before AND next morning at least 2 hr before procedure; follow w 960 mL water PO solifenacin (Vesicare) 5 mg PO DAILY 30 days trazodone 150 mg PO BEDTIME PRN HPI HPI Comments History of Present Illness Details Rich is a very pleasant 58-year-old [place]ian-speaking male patient of Dr. Alexis. He has a past medical history of vertigo, depression, BPH, diabetes, hypercholesteremia, and adenomatous polyp of colon. He presents to the office today as a new patient for stress incontinence. In discussion with the patient today he reports noting ongoing stress incontinence to be present for approximately 5 years and has been on Flomax however has not found this helpful. In office urinalysis results reviewed with the patient today 3+ glucosuria and microscopic hematuria. In discussion with the patient today he does report a longstanding history of nicotine dependence since the age of [age] years old. Reports smoking approximately 1 pack of cigarettes every 3 days. Discussed at length affects of uncontrolled diabetes on the bladder as well as microscopic hematuria in the setting of nicotine dependence. Discussed further workup of microscopic hematuria versus surveillance monitoring. He does report episodes of urinary urgency and frequency. He otherwise denies nocturia, hematuria, dysuria, foul smelling urine, changes to urinary stream, flank pain, fever, and or chills. PVR 16 mL. He otherwise denies any other issues or concerns at this time. [facility] Medical History Tubular adenoma of colon (~2008) Vertigo Depression BPH (benign prostatic hyperplasia) Diabetes Elevated cholesterol History of adenomatous polyp of colon (~2008) Surgical History History of colonoscopy History of hemorrhoidectomy History of esophagogastroduodenoscopy (EGD) Social History Patient Tobacco Use Status: Current everyday Tobacco user Tobacco use type: Cigarette Cigarette Packs Per Day: 0.5 Cigarettes Per Day: 7 Review of Systems Const Reports no additional complaints Eyes Reports no additional complaints ENT Reports no additional complaints Card Reports as per HPI Resp Reports no additional complaints GI Reports as per HPI Reports as per HPI Musc Reports no additional complaints Neuro Reports as per HPI Psych Reports no additional complaints Endo Reports as per HPI Physical Exam Const General: cooperative, healthy appearing, comfortable, no acute distress, well developed, alert and awake Orientation/consciousness: patient oriented x3 Limitations: no limitations HEENT Head: Yes normal to inspection, Yes normocephalic and Yes atraumatic Ears: hearing grossly normal bilaterally Eyes General: appearance normal, both eyes and all related structures Neck Neck: Yes normal visual inspection and Yes trachea midline Chest Chest palpation & inspection: normal inspection of the chest Resp Effort & Inspection: normal respiratory effort and able to speak in complete sentences Cardio Rate: regular rate GI Inspection: Yes normal to inspection General: Yes no CVA tenderness Back/Spine/Pelvis Back: no CVA tenderness Skin General skin exam: no rashes or lesions noted Neuro General: patient oriented x3 Extrem General: Yes normal to inspection Psych Appearance: grossly normal and well kempt Mental Status: mental status grossly normal Speech and movement: Normal speech and movement present and Clear speech present Affect: normal affect Attitude: cooperative Thought process: Normal thought process present Thought content: Normal thought content present Insight: Fair insight present (Psych) Judgement: Fair judgement present (Psych) Office Procedures Post Void Residual Post Residual Void Post Void Residual (PVR): 16 [id number]-[id number] Void Residual by ultrasound Results AMB Urinalysis, Automated UA Leukoctes 0 Miki/uL Last Edit by Declan Sierra on 07/31/23 13:20 UA Nitrite Negative Last Edit by Declan Sierra on 07/31/23 13:20 UA Urobilinogen 0.2 mg/dL Last Edit by Declan Sierra on 07/31/23 13:20 UA Protein 0 mg/dL Last Edit by Declan Sierra on 07/31/23 13:20 UA pH 6.0 Last Edit by Declan Sierra on 07/31/23 13:20 UA Blood 10 Brendon/uL Last Edit by Declan Sierra on 07/31/23 13:20 UA Specific [place] 1.015 Last Edit by Declan Sierra on 07/31/23 13:20 UA Ketone Negative Last Edit by Declan Sierra on 07/31/23 13:20 UA Bilirubin 0 mg/dL Last Edit by Declan Sierra on 07/31/23 13:20 UA Glucose 1000 mg/dL Last Edit by [email or web address] Sierra on 07/31/23 13:20 Results Reviewed Results Reviewed: Laboratory Last Values Urine pH (Auto) 6.0 07/31/23 13:09 Specific [place] (Auto) 1.015 07/31/23 13:09 Urine Protein (Auto) 0 mg/dL 07/31/23 13:09 Glucose (UA)(Auto) 1000 mg/dL 07/31/23 13:09 Urine Ketones (Auto) Negative 07/31/23 13:09 Urine Blood (Auto) 10 Brendon/uL 07/31/23 13:09 Urine Nitrite (Auto) Negative 07/31/23 13:09 Urine Bilirubin (Auto) 0 mg/dL 07/31/23 13:09 Urine Urobilinogen (Auto) 0.2 mg/dL 07/31/23 13:09 Leukocyte Esterase (Auto) 0 Miki/uL 07/31/23 13:09 Assessment & Plan Assessment & Plan (1) Microscopic hematuria: Code(s): R31.29 - Other microscopic hematuria (2) Stress incontinence, male: Code(s): N39.3 - Stress incontinence (female) (male) (3) Nicotine dependence, cigarettes, uncomplicated: Code(s): F17.210 - Nicotine dependence, cigarettes, uncomplicated Plan In office urinalysis results reviewed with the patient today; as noted above; will send for urine cytology. PVR 16 mL. Discussed at length potential causes of lower urinary tract symptoms patient is experiencing. Discussed further workup of microscopic hematuria in the setting of nicotine dependence versus surveillance monitoring; risks and benefits of these interventions were discussed at length. Discussed at length affects of uncontrolled diabetes on lower urinary tract symptoms. Discussed, educated, and stressed the importance of drinking water daily. Will obtain CT urogram for further assessment evaluation. BUN and creatinine ordered for imaging. Will obtain PSA for further assessment evaluation. Stop Flomax. Start 5 mg of VESIcare daily as discussed and prescribed. Patient will think about in office cystoscopy however will undergo CT urogram and urine cytology; he would like to think about this at this time; educational pamphlet provided on cystoscopy. Follow-up in 1-2 months with imaging and labs to be completed prior; or sooner with any issues, concerns, and or questions. Orders: Orders AMB Post Void Residual by ultrasound Today Z13.9 - Encounter for screening, unspecified Blood Urea Nitrogen Today F17.210 - Nicotine dependence, cigarettes, uncomplicated, R31.29 - Other microscopic hematuria Prostate Specific Antigen Today N39.3 - Stress incontinence (female) (male) Urine Cytology Today R31.29 - Other microscopic hematuria AMB Urinalysis Automated Today Z13.9 - Encounter for screening, unspecified CT urogram Today R31.29 - Other microscopic hematuria Creatinine Today F17.210 - Nicotine dependence, cigarettes, uncomplicated, R31.29 - Other microscopic hematuria Medications: New solifenacin (Vesicare) 5 mg PO DAILY 30 days 30 tabs 2RF Patient Instructions: The patient had an opportunity to ask questions regarding the treatment plan. All questions were answered. Physical exam, labs, and imaging were discussed and reviewed in detail. As well as risks, benefits, and discussion of treatment choices. No major barriers to understanding were identified. The patient expressed understanding and agreement with the above treatment plan. The patient was made aware they should contact our office by phone for worsening of their current condition, the appearance of new symptoms, or with any questions or concerns. Compliance is encouraged with any medications and follow up testing that is ordered. It is a privilege to be allowed the opportunity to participate in? your urological care.? Again, if you have any questions or concerns If you have any questions or concerns please do not hesitate to contact me. The office is [phone]. This note is constructed using voice recognition software. While every effort has been made to ensure accuracy bow maker custom errors may have been included. Yours sincerely, NATHALY Johnson Coding Level of Care Code New Pt Level 4 (32393) Diagnoses Microscopic hematuria R31.29 Stress incontinence, male N39.3 Nicotine dependence, cigarettes, uncomplicated F17.210 CPT Codes Post Residual Void - PVR CPT Code: 96178-Saot Void Residual by ultrasound ([id number])
== END 2023-07-31 13:39 | disposition home or self-care (01) ==
PROVIDERS: PCP Nurse Practitioner Family; Visit Provider Nurse Practitioner Family
DX: R31.29 Other microscopic hematuria (principal); N39.3 Stress incontinence (female) (male); F17.210 Nicotine dependence, cigarettes, uncomplicated
CPT/HCPCS: 99204

== ENCOUNTER 2023-07-31 12:59 | Outpatient (REF) | payer OTHER, SELFPAY ==
[2023-07-31 16:40] LABS: Urine Cytology See Pathology rpt
== END 2023-07-31 13:00 | disposition home or self-care (01) ==
LOC: HO.LNP 12:59
PROVIDERS: PCP Nurse Practitioner Family; Visit Provider Nurse Practitioner Family
DX: R31.29 Other microscopic hematuria (principal); N39.3 Stress incontinence (female) (male); F17.210 Nicotine dependence, cigarettes, uncomplicated; Z79.82 Long term (current) use of aspirin; Z79.899 Other long term (current) drug therapy
CPT/HCPCS: 51798; 81003; 88112; 99202

== ENCOUNTER 2023-09-28 09:12 | Outpatient (REF) | payer OTHER, SELFPAY ==
--- NOTE | ~2023-09-28 | CT_ITS ---
EXAMINATION: CT ABDOMEN AND PELVIS WITHOUT AND WITH CONTRAST CLINICAL INFORMATION: Microscopic hematuria. COMPARISON: Ultrasound abdomen 02/18/2021, CT abdomen and pelvis 04/30/2019. TECHNIQUE: Noncontrast CT of the abdomen and pelvis is performed followed by split bolus contrast-enhanced images using 85 mL Omnipaque 350 contrast.? Postcontrast imaging is performed during the combined nephrogram and excretion phase. Sagittal and coronal reformatted images were obtained on the technologist's workstation for both the precontrast and postcontrast phases. This CT examination was performed using dose optimization techniques as appropriate, variously including the following: *Automated exposure control *Adjustment of mA and/or kV according to patient size (this includes techniques or standardized protocols for targeted exams where dose is matched to indication/reason for exam; i.e. extremities or head) *Use of iterative reconstruction technique DLP: 662 mGy-cm FINDINGS: LUNG BASES: The visualized lung bases are unremarkable. LIVER, GALLBLADDER, AND BILIARY TREE: The liver is enlarged at 18.3 cm with normal shape and attenuation. No focal hepatic lesion or biliary ductal dilatation is present. The gallbladder is unremarkable with no evidence of radiopaque gallstones, gallbladder wall thickening, or obvious pericholecystic inflammatory changes. PANCREAS: Unremarkable. SPLEEN: Unremarkable. ADRENAL GLANDS: Unremarkable. Minimal nodularity on the left is unchanged. KIDNEYS AND URETERS: The kidneys are normal in size, shape, and attenuation. There is an unchanged benign Bosniak class I right lower pole renal cyst which needs no additional imaging or followup. No hydronephrosis, hydroureter, or calculi seen. No perinephric stranding. The collecting systems appear unremarkable without mucosal abnormality or filling defects BLADDER: Unremarkable. GASTROINTESTINAL TRACT: The small and large bowel are unremarkable aside from some scattered colonic diverticula without diverticulitis. The appendix is unremarkable. ABDOMINAL WALL: Prior inferior abdominal wall hernia repair. There is a tiny periumbilical hernia seen containing only fat. LYMPH NODES: No retroperitoneal lymphadenopathy. VASCULAR: Calcific atherosclerotic changes are present in the aorta and iliofemoral vessels. There is no evidence of an abdominal aortic aneurysm. PELVIC VISCERA: There is moderate BPH with prostate measuring 43 mL with prosthetic calcifications. Seminal vesicles appear normal. OSSEUS STRUCTURES: Unremarkable. CT/CT urogram IMPRESSION: 1. A cause for the patient's microscopic hematuria has not been found. 2. Incidental note made of mild hepatomegaly, colonic diverticulosis, BPH and other findings described above.
[2023-09-28] MEDS: iohexoL 350 MG/ML 100 ML INFUS..BTL 85 ML IV (10:18)
[2023-09-29 08:43] LABS: Creatinine POC 0.8 mg/dL (0.5-1.4); GFR POC > 60
== END 2023-09-28 09:13 | disposition home or self-care (01) ==
LOC: HO.CT 09:12
PROVIDERS: PCP Nurse Practitioner Family; Visit Provider Nurse Practitioner Family
DX: R31.29 Other microscopic hematuria (principal)
CPT/HCPCS: 74178; 82565; Q9967

== ENCOUNTER 2023-11-27 09:29 | Outpatient (REF) | payer OTHER, SELFPAY ==
[2023-11-27 11:46] LABS: Blood Urea Nitrogen 9 mg/dL (9-16); Cholesterol 110 mg/dL (<200); Estimated Glomerular Filt Rate > 60; HDL Cholesterol 29 mg/dL (>40); LDL Cholesterol Calculated 63 mg/dL (<100); Triglycerides 94 mg/dL (<150)
[2023-11-27 12:07] LABS: Prostate Specific Antigen 1.07 ng/mL (<0.05-4.0)
[2023-11-27 12:19] LABS: Creatinine Urine 133.69 mg/dL; Microalbum/Creatinine Ratio Ur 8.2 ug/mg cr (<30)
== END 2023-11-27 09:30 | disposition home or self-care (01) ==
LOC: HO.HHCL 09:29
PROVIDERS: Referring Provider Nurse Practitioner Family; Visit Provider Nurse Practitioner Family
DX: R31.29 Other microscopic hematuria (principal); F17.210 Nicotine dependence, cigarettes, uncomplicated; N39.3 Stress incontinence (female) (male); E11.9 Type 2 diabetes mellitus without complications; E78.2 Mixed hyperlipidemia; Z12.5 Encounter for screening for malignant neoplasm of prostate
CPT/HCPCS: 36415; 80061; 82043; 82565; 82570; 84153; 84520